=== PATIENT | female | born 1990 | race Two or more races ===

== ENCOUNTER → 2025-09-04 | Outpatient (CLI) | payer OTHER | LOC: M PLAIMG 13:50 | PROVIDERS: ATTEND Student in an Organized Health Care Education/Training Program | DX: M19.011 Primary osteoarthritis, right shoulder (principal); M67.813 Other specified disorders of tendon, right shoulder; M25.711 Osteophyte, right shoulder; M19.012 Primary osteoarthritis, left shoulder; M67.814 Other specified disorders of tendon, left shoulder ==